=== PATIENT | male | born 1980 | race Hispanic/Latino ===

== ENCOUNTER 2021-09-30 07:49 | Outpatient (CLI) | payer BC | END 2021-09-30 07:50 | disposition home or self-care (01) | LOC: CSHLAB 07:49 | PROVIDERS: ATTEND Internal Medicine | DX: Z20.822 Contact with and (suspected) exposure to COVID-19 (principal) | CPT/HCPCS: 87811 ==

== ENCOUNTER 2021-10-05 10:37 | Outpatient (CLI) | payer BC | END 2021-10-05 10:38 | disposition home or self-care (01) | LOC: CSHCP 10:37 | PROVIDERS: ATTEND Internal Medicine | DX: J45.990 Exercise induced bronchospasm (principal); R94.2 Abnormal results of pulmonary function studies | CPT/HCPCS: 94060; 94726; 94729; 94760 ==